=== PATIENT | male | born 1995 | race Caucasian/White ===

== ENCOUNTER 2023-07-26 21:24 | Emergency (ER) | payer OTHER ==
[~2023-07-26] VITALS: Ht 167.6 cm; Wt 98.4 kg
[2023-07-26 21:29] VITALS: BP_SYST 124; PULSE 61; RESP 24; TEMP 97.2; O2SAT 97
[2023-07-26] MEDS ORDERED: ALBUTEROL SULFATE 0.083% 2.5 MG/3 ML VIAL.NEB INH ONE (22:00)
[2023-07-26] MEDS ORDERED: predniSONE 20 MG TABLET PO ONE (22:00)
[2023-07-26] MEDS ORDERED: ALBMDI INH (23:41)
[2023-07-26] MEDS ORDERED: PRED20TA PO (23:41)
[2023-07-26] MEDS ORDERED: FLUT1DIS3 INH (23:41)
[2023-07-26] MEDS ORDERED: ALBU2.5V7 INH (23:45)
[2023-07-27 01:25] VITALS: BP_SYST 123; PULSE 77; RESP 20; TEMP 97.7; O2SAT 96
== END 2023-07-26 23:45 | disposition home or self-care (01) ==
LOC: SED 21:24
DX: J45.901 Unspecified asthma with (acute) exacerbation (principal); R06.02 Shortness of breath; Z79.899 Other long term (current) drug therapy
CPT/HCPCS: 99283; 94640; J7512